=== PATIENT | female | born 1985 | race Caucasian/White ===

== ENCOUNTER 2017-01-02 19:06 | Emergency (ER) | payer OTHER ==
[~2017-01-02] VITALS: Ht 170.2 cm; Wt 56.3 kg
[2017-01-02] MEDS ORDERED: MORGIDOX100 MG PO (19:59)
[2017-01-02] MEDS ORDERED: MOTRIN600 MG PO (19:59)
[2017-01-02 20:11] VITALS: BP 127/111
== END 2017-01-02 20:11 | disposition home or self-care (01) ==
LOC: EME 19:06
DX: A69.20 Lyme disease, unspecified (principal)
CPT/HCPCS: 99281; 99284